=== PATIENT | female | born 1950 | race Caucasian/White ===

== ENCOUNTER → 2024-05-31 | Outpatient (CLI) | payer MEDICARE, OTHER, SELFPAY ==
--- NOTE | 2024-05-31 12:50 | ST.SWALLOW ---
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 Pt described instances of regurgitation of undigested foods and/or liquids following meals when she bends over. She stated when she swallows something doesn't feel right. Pt reported a PMH of GERD ( omneprozol x1/day in a.m.), and GI issues. Pt had EGD for intestines approximately 2 .5 years ago in [place]. According to the pt, the results were WNL. Subjective Observations Pt was seated in the fluoroscopy chair with directions and procedures described for her. She indicated she understood and agreed to proceed. Patient Positioning Position View Lat-A/P Imaging Lateral View Textures Administered Trials Presented Thin Liquid via Spoon (IDDSI 0 ),Thin Liquid via Cup (IDDSI 0 ),Extremely Thick Liquid via Spoon (IDDSI 4),Regular (IDDSI 7) Barium Tablet Yes The IDDSI Framework Protocol: IDDSI.1 Oral Impairment Source: The Modified Barium Swallow Impairment Profile (MBSImP??) Lip Closure No labial escape Tongue Control During Bolus Hold Cohesive bolus between tongue to palatal seal Bolus Preparation/Mastication Timely & efficient chewing & mashing Bolus Transport/Lingual Motion Brisk tongue motion Oral Residue Complete oral clearance Initiation of Pharyngeal Swallow Bolus head at pyriforms Additional Oral Impairment Observations *Oral phase of swallow observed to be WNL *OME and DKS were observed to be WNL. *Dentition natural and in good hygiene *Mastication observed with rotary chew pattern. *Good bolus formation, control and AP transition. Pharyngeal Impairment Source: The Modified Barium Swallow Impairment Profile (MBSImP??) Soft Palate Elevation No bolus between soft palate & pharyngeal wall Laryngeal Elevation Comp.sup.move.thyroid cart.w/ comp.approx.arytenoids to epiglot petiole Anterior Hyoid Excursion Complete anterior movement Epiglottic Movement Complete inversion Laryngeal Vestibular Closure Complete; no air/contrast in laryngeal vestibule Pharyngeal Stripping Wave Present - complete Pharyngoesophageal Segment Opening Complete distention & complete duration; no obstruction of flow Tongue Base Retraction Trace column of contrast/air betwn tongue base & post. pharyngeal wall Pharyngeal Residue Trace residue within/on pharyngeal structures Location Pyriform sinuses Additional Pharyngeal Impairment *Pharyngeal phase of swallow Observations observed to be WNL *Osteophyte at C5-C6 that alters shape of esophagus; does not interfere with bolus flow A/P View Textures Administered Trials Presented Thin Liquid via Cup (IDDSI 0), Regular (IDDSI 7) The IDDSI Framework Protocol: IDDSI.1 A/P View Observations Pharyngeal Contraction Complete Esophageal Clearance Upright Position Esophageal retention w/ regtrograde flow below pharyngoesoph segment Vocal Fold Function Good Esophageal Function Poor Motility,Reverse Peristalsis,Stasis,Narrowing Additional A-P Observations *Esophageal retention with retroflow of contents (semi- solid/solid trials) observed near the thoracic inlet *Liquids observed to clear the esophagus in a timely manner *Narrowing of esophagus observed below the pts heart ( tablet stuck in that area needing 4-5 additional swallows) and narrowing also noted above the LES Clinical Impressions Dysphagia Type Esophageal Findings *Esophageal phase dysphagia observed. Recommend referral to GI for upper GI assessment re: GERD and narrowing of esophagus *Recommendations made to slow rate of intake during meals to reduce stacking of food in esophagus. Also increased fluid intake during meals, possible alternating solid with liquids to aid in esophageal clearance of contents Patient Appropriate for Therapy No Recommendations Diet Comments No changes in diet recommended Aspiration Precautions Recommended Precautions Upright at 90 Degrees, Alternate Liquids/Solids Additional Precautions Remain upright after eating for gravity assist in esophogeal clearing Treatment Plan Recommended Referrals GI Consult Therapy Strategy Recommendations Sitting Upright (90 deg)
== END ==
LOC: RAD 11:02
PROVIDERS: PCP Internal Medicine; Referring Provider Internal Medicine; Visit Provider Internal Medicine
DX: K21.9 Gastro-esophageal reflux disease without esophagitis (principal); R13.10 Dysphagia, unspecified; R09.89 Other specified symptoms and signs involving the circulatory and respiratory systems
CPT/HCPCS: 74230; 92610